=== PATIENT | female | born 1970 | race Caucasian/White ===

== ENCOUNTER 2017-12-03 15:42 | Inpatient (IN) | payer MEDICAID ==
[~2017-12-03] VITALS: Ht 162.6 cm; Wt 77.2 kg
[~2017-12-03 15:42] MED LIST: DEXAMETHASONE SOD PHOSPHATE 4 MG/ML VIAL IVP ONE; GLYCOPYRROLATE 0.2 MG/ML VIAL IJ ONE; KETOROLAC TROMETHAMINE 30 MG VIAL IVP ONE; LR 1,000 ML IV.SOLN IV ONE; MEPERIDINE HCL/PF 100 MG/ML AMP IM ONE; MIDAZOLAM HCL 5 MG/5 ML VIAL IVP ONE; NEOSTIGMINE METHYLSULFATE 1 MG/ML, 10 ML VIAL IVP ONE; NS 1000 ML BAG IV ONE; NS IRRIG SOLN 1000 ML IR ONE; ONDANSETRON HCL 4 MG/2 ML VIAL IVP ONE; PROPOFOL 200MG/ 20ML VIAL (DIPRIVAN) IV ONE; SEVOFLURANE 15 MIN GAS INH ONE; SUCCINYLCHOLINE CHLORIDE 20 MG/ML(QUELICIN) IVP ONE; fentaNYL CITRATE 250 MCG/5 ML AMP IV ONE
[2017-12-03 15:50] VITALS: BP_SYST 145
[2017-12-03] MEDS ORDERED: KETOROLAC TROMETHAMINE 30 MG VIAL IVP ONE (16:00)
[2017-12-03 16:18] LABS: BASOPHILS % (AUTO) 0.4 % (0.0-2.0); EOSINOPHILS # (AUTO) 0.6 K/uL (0.0-0.4); EOSINOPHILS % (AUTO) 8.5 % (0.0-4.0); HEMOGLOBIN 11.7 g/dL (12.0-16.0); LYMPHOCYTES # (AUTO) 2.6 K/uL (1.0-5.5); LYMPHOCYTES % (AUTO) 34.7 % (20.5-51.5); MEAN CORPUSCULAR HEMOGLOBIN 28 pg (27-31); MEAN CORPUSCULAR HGB CONC 33 % (32-36); MEAN CORPUSCULAR VOLUME 87 fL (79.0-98.0); MONOCYTES # (AUTO) 0.7 K/uL (0.0-1.0); MONOCYTES % (AUTO) 9.7 % (1.7-9.3); NEUTROPHILS # (AUTO) 3.7 K/uL (1.8-7.7); NEUTROPHILS % (AUTO) 46.7 % (40.0-70.0); PLATELET COUNT (AUTO) 509 K/uL (130-430); RED BLOOD CELL COUNT(AUTO) 4.16 MIL/uL (4.2-6.2); RED CELL DISTRIBUTION WIDTH 14.4 % (9.0-15.0); WHITE BLOOD COUNT (AUTO) 7.6 K/uL (4.8-10.8)
[2017-12-03 16:33] LABS: CREATININE 0.68 mg/dL (0.55-1.30)
[2017-12-03 16:38] LABS: ALBUMIN 3.6 g/dL (3.4-4.8); TOTAL BILIRUBIN 0.3 mg/dL (0.0-1.0)
[2017-12-03 17:06] LABS: PROTHROMBIN TIME 9.7 SECS (9.5-12.5)
[2017-12-03 17:10] LABS: BILIRUBIN,URINE NEGATIVE (NEGATIVE); BLOOD, URINE NEGATIVE (NEGATIVE); CLARITY/URINE CLEAR (CLEAR); COLOR,URINE YELLOW (YELLOW); GLUCOSE,URINE NEGATIVE (NEGATIVE); KETONES,URINE NEGATIVE (NEGATIVE); LEUKOCYTE ESTERASE ,URINE NEGATIVE (NEGATIVE); NITRITE, URINE NEGATIVE (NEGATIVE); PH,URINE 5.5 (5.0-8.0); PROTEIN URINE NEGATIVE (NEGATIVE); UROBILINOGEN,URINE 0.2 (0.2-1.0)
[2017-12-03] MEDS ORDERED: MORPHINE 4 MG/ML INJ. SYRINGE IVP ONE (17:30)
[2017-12-03] MEDS ORDERED: ONDANSETRON HCL 4 MG/2 ML VIAL IVP ONE (17:30)
[2017-12-03] MEDS ORDERED: OMEP20TA20 PO (17:37)
[2017-12-03 17:51] VITALS: BP_SYST 135
[2017-12-03] MEDS ORDERED: KETOROLAC TROMETHAMINE 15 MG VIAL IVP PRN (18:15)
[2017-12-03] MEDS ORDERED: FLU VACC QS 2017-18(36MOS+)/PF 0.5 ML/SYR SYRINGE I.M. PRN (18:15)
[2017-12-03] MEDS ORDERED: ACETAMINOPHEN 325 MG TABLET PO PRN (18:30)
[2017-12-03] MEDS ORDERED: ONDANSETRON HCL 4 MG/2 ML VIAL IVP PRN (18:30)
[2017-12-03 18:35] LABS: BARBITURATE, URINE NEGATIVE (NEG <=200); BENZODIAZEPINE, URINE NEGATIVE (NEG <=150); CANNABINOID, URINE NEGATIVE (NEG <=50); COCAINE, URINE NEGATIVE (NEG <=150); METHAMPHETAMINES SCREEN,URINE NEGATIVE (NEG <=500); OPIATE, URINE NEGATIVE (NEG <=100); PHENCYCLIDINE SCREEN,URINE NEGATIVE (NEG <=25); UR TRICYCLIC ANTIDEPRESSANTS NEGATIVE (NEG <=300); URINE AMPHETAMINE NEGATIVE (NEG <=500); URINE METHADONE NEGATIVE (NEG <=200); URINE OXYCODONE SCREEN NEGATIVE (NEG <=100); URINE PROPOXYPHENE SCREEN NEGATIVE (NEG <=300)
[2017-12-03 19:50] VITALS: BP_SYST 118
[2017-12-04 02:05] VITALS: BP_SYST 103
[2017-12-04 07:50] LABS: BASOPHILS % (AUTO) 0.5 % (0.0-2.0); EOSINOPHILS # (AUTO) 0.7 K/uL (0.0-0.4); EOSINOPHILS % (AUTO) 11.1 % (0.0-4.0); HEMATOCRIT 33.4 % (36-48); HEMOGLOBIN 11.2 g/dL (12.0-16.0); LYMPHOCYTES # (AUTO) 2.1 K/uL (1.0-5.5); LYMPHOCYTES % (AUTO) 34.6 % (20.5-51.5); MEAN CORPUSCULAR HEMOGLOBIN 29 pg (27-31); MEAN CORPUSCULAR HGB CONC 33 % (32-36); MEAN CORPUSCULAR VOLUME 87 fL (79.0-98.0); MONOCYTES # (AUTO) 0.6 K/uL (0.0-1.0); MONOCYTES % (AUTO) 10.4 % (1.7-9.3); NEUTROPHILS # (AUTO) 2.8 K/uL (1.8-7.7); NEUTROPHILS % (AUTO) 43.4 % (40.0-70.0); PLATELET COUNT (AUTO) 395 K/uL (130-430); RED BLOOD CELL COUNT(AUTO) 3.85 MIL/uL (4.2-6.2); RED CELL DISTRIBUTION WIDTH 14.2 % (9.0-15.0); WHITE BLOOD COUNT (AUTO) 6.2 K/uL (4.8-10.8)
[2017-12-04 08:19] LABS: ALBUMIN 3.1 g/dL (3.4-4.8); CALCIUM 8.8 mg/dL (8.4-11.0); CREATININE 0.92 mg/dL (0.55-1.30); POTASSIUM 4.4 mmol/L (3.5-5.1); TOTAL BILIRUBIN 0.5 mg/dL (0.0-1.0)
[2017-12-04 08:20] VITALS: BP_SYST 108
[2017-12-04 09:05] LABS: TOTAL IRON BIND. CAPACITY 323 ug/dL (250-450)
[2017-12-04 20:15] VITALS: BP_SYST 112
[2017-12-04 23:26] VITALS: BP_SYST 106
[2017-12-05] VITALS (10 sets, daily range): BP systolic 99–113
[2017-12-05] MEDS ORDERED: HYDROcodone/ACETAMIN 5-325 MG TAB (NORCO/ VICODIN) PO PRN (10:45)
[2017-12-05] MEDS ORDERED: ONDANSETRON HCL 4 MG/2 ML VIAL ONE (10:57)
[2017-12-05] MEDS ORDERED: HYDROmorphone 1 MG INJ. 1 MG/ML AMPUL IVP PRN (11:00)
[2017-12-05] MEDS ORDERED: ONDANSETRON HCL 4 MG/2 ML VIAL IVP ONE (11:00)
[2017-12-05] MEDS ORDERED: MIDAZOLAM HCL 5 MG/5 ML VIAL IVP PRN (11:00)
[2017-12-05] MEDS ORDERED: fentaNYL CITRATE/PF 100 MCG/2 ML AMP IVP PRN (11:00)
[2017-12-05] MEDS ORDERED: NALOXONE HCL 0.4 MG/ML AMP (NARCAN) IVP ONE (11:00)
[2017-12-05] MEDS ORDERED: MEPERIDINE HCL/PF 25 MG/ML DISP.SYRIN IVP PRN (11:00)
[2017-12-05] MEDS ORDERED: KETOROLAC TROMETHAMINE 30 MG VIAL IM ONE (11:00)
[2017-12-05] MEDS: fentaNYL CITRATE/PF 100 MCG/2 ML AMP ONE ×2 (11:15→11:23)
[2017-12-05] MEDS ORDERED: CEFAZOLIN SODIUM IV SCH (14:00)
[2017-12-05] MEDS ORDERED: D5W IV SCH (14:00)
[2017-12-05] MEDS: CEFAZOLIN SOD 1 GM/ ISO 50 ML PREMIX IV SCH ×2 (15:10→21:51)
[2017-12-05] MEDS: fentaNYL CITRATE/PF 100 MCG/2 ML AMP IVP PRN (15:11)
[2017-12-06 01:23] VITALS: BP_SYST 116
[2017-12-06] MEDS: fentaNYL CITRATE/PF 100 MCG/2 ML AMP IVP PRN ×3 (02:41→15:14)
[2017-12-06] MEDS: CEFAZOLIN SOD 1 GM/ ISO 50 ML PREMIX IV SCH ×2 (05:51→15:14)
[2017-12-06 07:32] LABS: BASOPHILS % (AUTO) 0.2 % (0.0-2.0); EOSINOPHILS # (AUTO) 0.2 K/uL (0.0-0.4); EOSINOPHILS % (AUTO) 1.6 % (0.0-4.0); HEMATOCRIT 33.5 % (36-48); HEMOGLOBIN 11.1 g/dL (12.0-16.0); LYMPHOCYTES # (AUTO) 2.3 K/uL (1.0-5.5); LYMPHOCYTES % (AUTO) 22.9 % (20.5-51.5); MEAN CORPUSCULAR HEMOGLOBIN 29 pg (27-31); MEAN CORPUSCULAR HGB CONC 33 % (32-36); MEAN CORPUSCULAR VOLUME 87 fL (79.0-98.0); MONOCYTES # (AUTO) 0.8 K/uL (0.0-1.0); MONOCYTES % (AUTO) 8.1 % (1.7-9.3); NEUTROPHILS # (AUTO) 6.6 K/uL (1.8-7.7); NEUTROPHILS % (AUTO) 67.2 % (40.0-70.0); PLATELET COUNT (AUTO) 465 K/uL (130-430); RED BLOOD CELL COUNT(AUTO) 3.84 MIL/uL (4.2-6.2); RED CELL DISTRIBUTION WIDTH 14.2 % (9.0-15.0); WHITE BLOOD COUNT (AUTO) 9.9 K/uL (4.8-10.8)
[2017-12-06 07:42] LABS: CALCIUM 8.7 mg/dL (8.4-11.0); POTASSIUM 3.7 mmol/L (3.5-5.1); TOTAL BILIRUBIN 0.6 mg/dL (0.0-1.0)
[2017-12-06 08:21] VITALS: BP_SYST 116
[2017-12-06 12:14] VITALS: BP_SYST 112
[2017-12-06 16:48] VITALS: BP_SYST 118
[2017-12-06 19:10] VITALS: BP_SYST 102
[2017-12-06] MEDS ORDERED: TRAM50TA92 PO (21:08)
[2017-12-06 21:10] VITALS: BP_SYST 102
== END 2017-12-06 22:15 | disposition home or self-care (01) | DRG 263 ==
LOC: SED 15:42 → SMU 17:37
PROVIDERS: ADMIT Internal Medicine; ATTEND Internal Medicine
PROC: 0FT44ZZ Resection of Gallbladder, Percutaneous Endoscopic Approach (ICD-10-PCS; principal; 2017-12-05 09:00)
DX: K80.01 Calculus of gallbladder with acute cholecystitis with obstruction (principal); D64.9 Anemia, unspecified; K21.9 Gastro-esophageal reflux disease without esophagitis; Z79.899 Other long term (current) drug therapy; Z88.2 Allergy status to sulfonamides
CPT/HCPCS: 36415; 71045; 76700-TC; 78226; 80053; 80061; 80307; 81003; 83540-TC; 83550-TC; 83690-TC; 84484; 84703; 85025; 85610-TC; 85730-TC; 88304; 93005; A9537; J0330; J0690; J1100; J1885; J2175; J2250; J2270; J2405; J2704; J2710; J3010; J3490; J7030; J7120

== ENCOUNTER 2021-12-28 20:41 | Emergency (ER) | payer MEDICAID ==
[~2021-12-28] VITALS: Ht 162.6 cm; Wt 77.1 kg
[~2021-12-28 20:41] MED LIST changes: -DEXAMETHASONE SOD PHOSPHATE 4 MG/ML VIAL IVP ONE; -GLYCOPYRROLATE 0.2 MG/ML VIAL IJ ONE; -KETOROLAC TROMETHAMINE 30 MG VIAL IVP ONE; -LR 1,000 ML IV.SOLN IV ONE; -MEPERIDINE HCL/PF 100 MG/ML AMP IM ONE; -MIDAZOLAM HCL 5 MG/5 ML VIAL IVP ONE; -NEOSTIGMINE METHYLSULFATE 1 MG/ML, 10 ML VIAL IVP ONE; -NS 1000 ML BAG IV ONE; -NS IRRIG SOLN 1000 ML IR ONE; +OMEP20TA20 PO; -ONDANSETRON HCL 4 MG/2 ML VIAL IVP ONE; -PROPOFOL 200MG/ 20ML VIAL (DIPRIVAN) IV ONE; -SEVOFLURANE 15 MIN GAS INH ONE; -SUCCINYLCHOLINE CHLORIDE 20 MG/ML(QUELICIN) IVP ONE; +TRAM50TA92 PO; -fentaNYL CITRATE 250 MCG/5 ML AMP IV ONE
--- NOTE | 2021-12-28 20:45 | NUR ---
Dr. Marcelo present in room.
--- NOTE | 2021-12-28 20:45 | NUR ---
Patient to ER bed 4 to gown for evaluation. Side rails up. Report given to Josef RICHARD(bandar).
[2021-12-28 20:46] VITALS: BP_SYST 140
[2021-12-28 21:30] LABS: BASOPHILS % (AUTO) 0.6 % (0.0-2.0); EOSINOPHILS # (AUTO) 0.5 K/uL (0.0-0.4); EOSINOPHILS % (AUTO) 7.2 % (0.0-4.0); HEMATOCRIT 39.1 % (36-48); LYMPHOCYTES # (AUTO) 2.8 K/uL (1.0-5.5); LYMPHOCYTES % (AUTO) 41.2 % (20.5-51.5); MEAN CORPUSCULAR HEMOGLOBIN 30 pg (27-31); MEAN CORPUSCULAR HGB CONC 33 % (32-36); MEAN CORPUSCULAR VOLUME 89 fL (79.0-98.0); MONOCYTES # (AUTO) 0.5 K/uL (0.0-1.0); MONOCYTES % (AUTO) 7.1 % (1.7-9.3); NEUTROPHILS % (AUTO) 43.9 % (40.0-70.0); PLATELET COUNT (AUTO) 368 K/uL (130-430); RED CELL DISTRIBUTION WIDTH 14.3 % (9.0-15.0); WHITE BLOOD COUNT (AUTO) 6.8 K/uL (4.8-10.8)
[2021-12-28 21:32] LABS: ANION GAP 8 (5-15); CALCIUM 9.4 mg/dL (8.4-11.0); CHLORIDE 104 mmol/L (98-107); GLUCOSE 90 mg/dL (70-99); SODIUM SERUM 142 mmol/L (136-145); UREA NITROGEN, BLOOD 21 mg/dL (8-21)
[2021-12-28 21:36] LABS: ALANINE AMINOTRANSFERASE 25 U/L (12-78); ALBUMIN 3.8 g/dL (3.4-4.8); AMYLASE 53 U/L (0-100); ASPARTATE AMINOTRANSFERASE 15 U/L (10-37); LIPASE 123 U/L (73-393); TOTAL BILIRUBIN 0.2 mg/dL (0.0-1.0)
[2021-12-28 21:37] LABS: GFR AFRICAN AMERICAN 85 mL/min (>90)
[2021-12-28] MEDS ORDERED: IBUP-1969 PO (21:55)
[2021-12-28] MEDS ORDERED: HYDR-3917 PO (21:55)
[2021-12-28 22:01] LABS: C-REACTIVE PROTEIN QUANT < 0.2 mg/dL (0-0.5)
[2021-12-28 22:15] VITALS: BP_SYST 142
--- NOTE | 2021-12-28 22:15 | NUR ---
Patient given written and verbal discharge instructions and verbalizes understanding. ER MD discussed with patient the results and treatment provided. Patient in stable condition. ID arm band removed. IV catheter removed intact and dressing applied, no active bleeding.Rx of norco 5/325mg and ibuprofen given. Patient educated on pain management and to follow up with PMD.Opportunity for questions provided and answered. Medication side effect fact sheet provided.
[2021-12-28 23:28] LABS: BILIRUBIN,URINE NEGATIVE (NEGATIVE); BLOOD, URINE NEGATIVE (NEGATIVE); COLOR,URINE YELLOW (YELLOW); GLUCOSE,URINE NEGATIVE (NEGATIVE); KETONES,URINE TRACE (NEGATIVE); LEUKOCYTE ESTERASE ,URINE 1+ (NEGATIVE); NITRITE, URINE NEGATIVE (NEGATIVE); PROTEIN URINE TRACE (NEGATIVE)
[2021-12-28 23:29] LABS: CLARITY/URINE HAZY (CLEAR)
[2021-12-28 23:39] LABS: BACTERIA,URINE MODERATE /HPF (None Seen); MUCUS,URINE 1+ /LPF (None Seen); RBC,URINE 0-3 /HPF (0-3)
== END 2021-12-28 22:15 | disposition home or self-care (01) ==
LOC: SED 20:41
DX: R10.31 Right lower quadrant pain (principal); Z88.2 Allergy status to sulfonamides; Z79.899 Other long term (current) drug therapy
CPT/HCPCS: 36415; 76376; 80053; 81000; 81025; 82150; 83690; 84703; 85025; 86140; 87086; 99284

== ENCOUNTER 2022-05-22 06:39 | Day surgery (SDC) | payer MEDICAID ==
[~2022-05-22] VITALS: Ht 165.1 cm; Wt 77.6 kg
[~2022-05-22 06:39] MED LIST changes: +HYDR-3917 PO; +IBUP-1969 PO
[2022-05-22 07:02] LABS: HCG,QUAL RESULT NEGATIVE (NEGATIVE)
[2022-05-22] MEDS ORDERED: SIMETHICONE 40 MG/0.6 ML ML ONE (07:22)
[2022-05-22] MEDS ORDERED: fentaNYL CITRATE/PF 100 MCG/2 ML AMP ONE (07:22)
[2022-05-22] MEDS ORDERED: MEPERIDINE 100 MG INJ. 100 MG/ML VIAL ONE (08:13)
[2022-05-22] MEDS: MIDAZOLAM HCL 5 MG/5 ML VIAL ONE ×4 (08:13→08:31)
[2022-05-22] MEDS ORDERED: ONDANSETRON HCL 4 MG/2 ML VIAL ONE (08:20)
[2022-05-22] MEDS: DIPHENHYDRAMINE INJ 50 MG/ML VIAL ONE ×2 (08:29→08:33)
[2022-05-22 12:12] VITALS: BP_SYST 118
== END 2022-05-22 10:00 | disposition home or self-care (01) ==
LOC: SDS 06:39 → SMU 06:39 → SDS 10:00
PROVIDERS: ATTEND Internal Medicine Gastroenterology
DX: R10.32 Left lower quadrant pain (principal); K62.1 Rectal polyp; D13.1 Benign neoplasm of stomach; K21.9 Gastro-esophageal reflux disease without esophagitis; K44.9 Diaphragmatic hernia without obstruction or gangrene; K22.2 Esophageal obstruction; K29.70 Gastritis, unspecified, without bleeding; K64.9 Unspecified hemorrhoids; Z86.010 Personal history of colon polyps; Z79.899 Other long term (current) drug therapy; Z20.822 Contact with and (suspected) exposure to COVID-19
CPT/HCPCS: 45385; 43239; 87426; 84703; 36415; 88305; 88312; 88313; 99152; 99153; G0378; J1200; J2250; J2405; J2175; J3010

== ENCOUNTER 2022-06-05 20:33 | Emergency (ER) | payer MEDICAID ==
[~2022-06-05] VITALS: Ht 165.1 cm; Wt 80.7 kg
--- NOTE | 2022-06-05 20:37 | NUR ---
Placed in room 1 . Placed on cardiac monitor technician, blood pressure machine and pulse oximeter. To gown for exam. Side rails up. Report given to RAZIA RICHARD.
[2022-06-05 20:38] VITALS: BP_SYST 137
--- NOTE | 2022-06-05 20:40 | NUR ---
Pt ambulatory from home with c/o "pressure" like discomfort to L chest with onset x3 hours. Pressure radiates to L side of neck. Denies any exacerbating cause. Denies any N&V. Breathing adequately on RA.
--- NOTE | 2022-06-05 20:43 | NUR ---
# 20 gauge angiocath placed to left AC. Use of asceptic technique. Opsite placed over site. Blood return noted. Flushed with 10 cc of normal saline. No evidence of infiltration noted. Patient tolerated well.
--- NOTE | 2022-06-05 20:44 | NUR ---
ER at bedside examining patient.
[2022-06-05] MEDS ORDERED: KETOROLAC TROMETHAMINE 30 MG VIAL IVP ONE (21:00)
[2022-06-05 21:05] LABS: BASOPHILS # (AUTO) 0.1 K/uL (0.0-0.2); MEAN CORPUSCULAR VOLUME 90 fL (79.0-98.0); WHITE BLOOD COUNT (AUTO) 7.9 K/uL (4.8-10.8)
[2022-06-05 21:14] LABS: BASOPHILS % (AUTO) 0.8 % (0.0-2.0); EOSINOPHILS # (AUTO) 0.4 K/uL (0.0-0.4); EOSINOPHILS % (AUTO) 5.4 % (0.0-4.0); LYMPHOCYTES # (AUTO) 2.6 K/uL (1.0-5.5); LYMPHOCYTES % (AUTO) 33.3 % (20.5-51.5); MONOCYTES # (AUTO) 0.7 K/uL (0.0-1.0); MONOCYTES % (AUTO) 9.3 % (1.7-9.3); NEUTROPHILS % (AUTO) 51.2 % (40.0-70.0); PLATELET COUNT (AUTO) 388 K/uL (130-430); RED BLOOD CELL COUNT(AUTO) 4.22 MIL/uL (4.2-6.2); RED CELL DISTRIBUTION WIDTH 13.2 % (9.0-15.0)
[2022-06-05 21:24] LABS: ANION GAP 6 (5-15); CALCIUM 9.2 mg/dL (8.4-11.0); CHLORIDE 105 mmol/L (98-107); CREATININE 1.16 mg/dL (0.55-1.30); GLUCOSE 113 mg/dL (70-99); UREA NITROGEN, BLOOD 23 mg/dL (8-21)
[2022-06-05 21:33] LABS: ALANINE AMINOTRANSFERASE 19 U/L (12-78); ALBUMIN 3.6 g/dL (3.4-4.8); ASPARTATE AMINOTRANSFERASE 13 U/L (10-37); TOTAL BILIRUBIN 0.4 mg/dL (0.0-1.0)
[2022-06-05 21:34] LABS: GFR AFRICAN AMERICAN 63 mL/min (>90)
[2022-06-06 00:50] VITALS: BP_SYST 142
--- NOTE | 2022-06-06 01:06 | NUR ---
Patient given written and verbal discharge instructions and verbalizes understanding. ER MD Manuel discussed with patient the results and treatment provided. Patient in stable condition. ID arm band removed. IV catheter removed intact and dressing applied, no active bleeding. Patient educated on pain management and to follow up with PMD. Pain Scale 0/10. Opportunity for questions provided and answered.
== END 2022-06-06 01:06 | disposition home or self-care (01) ==
LOC: SED 20:33
DX: R07.89 Other chest pain (principal); Z88.2 Allergy status to sulfonamides; Z79.899 Other long term (current) drug therapy
CPT/HCPCS: 99285; 96374; 71045; 80053; 83880; 85025; 85379; 84484; 36415; 93005; J1885

== ENCOUNTER 2024-01-13 02:51 | Emergency (ER) | payer MEDICAID ==
[~2024-01-13] VITALS: Ht 165.1 cm; Wt 81.6 kg
[2024-01-13 02:59] VITALS: BP_SYST 161; PULSE 84; RESP 16; TEMP 97.4; O2SAT 99
[2024-01-13] MEDS: ALBUTEROL SULFATE 0.083% 2.5 MG/3 ML VIAL.NEB INH ONE (03:11)
[2024-01-13] MEDS: predniSONE 20 MG TABLET PO ONE (03:16)
[2024-01-13] MEDS: methylPREDNISolone SOD SUCC/PF 62.5 MG/ML VIAL IVP ONE (03:40)
[2024-01-13] MEDS: MAGNESIUM SULFATE 50 ML IV ONE (03:41)
[2024-01-13] MEDS ORDERED: ALBUTEROL SULFATE 0.083% 2.5 MG/3 ML VIAL.NEB INH ONE (04:05)
[2024-01-13 04:40] LABS: BASOPHILS % (AUTO) 0.5 % (0.0-2.0); EOSINOPHILS # (AUTO) 0.6 K/uL (0.0-0.4); EOSINOPHILS % (AUTO) 8.9 % (0.0-4.0); HEMATOCRIT 38.1 % (36-48); HEMOGLOBIN 12.8 g/dL (12.0-16.0); LYMPHOCYTES # (AUTO) 2.9 K/uL (1.0-5.5); LYMPHOCYTES % (AUTO) 43.2 % (20.5-51.5); MEAN CORPUSCULAR HEMOGLOBIN 30 pg (27-31); MEAN CORPUSCULAR HGB CONC 34 % (32-36); MEAN CORPUSCULAR VOLUME 89 fL (79.0-98.0); MONOCYTES # (AUTO) 0.5 K/uL (0.0-1.0); MONOCYTES % (AUTO) 7.2 % (1.7-9.3); NEUTROPHILS # (AUTO) 2.7 K/uL (1.8-7.7); NEUTROPHILS % (AUTO) 40.2 % (40.0-70.0); PLATELET COUNT (AUTO) 428 K/uL (130-430); RED CELL DISTRIBUTION WIDTH 13.5 % (9.0-15.0); WHITE BLOOD COUNT (AUTO) 6.7 K/uL (4.8-10.8)
[2024-01-13 04:51] LABS: ALANINE AMINOTRANSFERASE 37 U/L (12-78); ALBUMIN 3.3 g/dL (3.4-4.8); ANION GAP 13 (5-15); ASPARTATE AMINOTRANSFERASE 21 U/L (10-37); BILIRUBIN,DIRECT 0.1 mg/dL (0.0-0.3); CALCIUM 8.7 mg/dL (8.4-11.0); CARBON DIOXIDE 27 mmol/L (23-29); CHLORIDE 103 mmol/L (98-107); CREATINE KINASE, TOTAL 176 U/L (26-192); CREATININE 1.02 mg/dL (0.55-1.30); GFR AFRICAN AMERICAN 73 mL/min (>90); GLUCOSE 176 mg/dL (74-106); SODIUM SERUM 143 mmol/L (136-145); TOTAL BILIRUBIN 0.3 mg/dL (0.0-1.0); UREA NITROGEN, BLOOD 20 mg/dL (8-21)
[2024-01-13 04:58] LABS: GFR NON AFRICAN-AMERICAN 60 mL/min (>90)
[2024-01-13 04:59] LABS: POTASSIUM 2.9 mmol/L (3.5-5.1)
[2024-01-13] MEDS ORDERED: PRED20TA PO (05:23)
[2024-01-13] MEDS ORDERED: ALBMDI INH (05:23)
[2024-01-13 05:36] VITALS: BP_SYST 122; PULSE 84; RESP 16; TEMP 97.6; O2SAT 93
== END 2024-01-13 05:25 | disposition home or self-care (01) ==
LOC: SED 02:51
DX: J45.901 Unspecified asthma with (acute) exacerbation (principal); Z88.2 Allergy status to sulfonamides; Z79.899 Other long term (current) drug therapy; Z79.2 Long term (current) use of antibiotics
CPT/HCPCS: 99285; 96365; 71045; 96366; 96375; 80076; 80048; 82550; 83880; 85025; 85379; 87040; 84484; 36415; 94640; J7512; J2930; J3475